=== PATIENT | male | born 1995 | race African-American/Black ===

== ENCOUNTER 2017-02-02 10:13 | Emergency (ER) | payer MEDICAID ==
[2017-02-02] MEDS ORDERED: SODIUM CHLORIDE 0.9% 1,000 ML IV ONE (14:15)
[2017-02-02 14:21] LABS: CLARITY URINE CLEAR (CLEAR); COLOR URINE YELLOW (YELLOW); GLUCOSE URINE NEGATIVE (NEGATIVE); KETONES URINE NEGATIVE (NEGATIVE); LEUKOCYTE ESTERASE URINE NEGATIVE (NEGATIVE); NITRITE URINE NEGATIVE (NEGATIVE); OCCULT BLOOD URINE NEGATIVE (NEGATIVE); PH URINE 7.5 (4.5-8.0); PROTEIN URINE NEGATIVE (NEGATIVE); SPECIFIC GRAVITY URINE 1.003 (1.005-1.030); UROBILINOGEN URINE 0.2 E.U./dL (0.2-1.0)
[2017-02-02 14:35] LABS: EOSINOPHILS % 0.5 % (0.0-5.0); HEMATOCRIT. 45.8 % (42.0-52.0); HEMOGLOBIN. 15.3 g/dL (14.0-18.0); LYMPHOCYTES % 31.4 % (20.0-50.0); MEAN CORPUSCULAR HEMOGLOBIN 29.1 pg (28.0-32.0); MEAN CORPUSCULAR VOLUME 86.8 fL (80.0-94.0); MEAN PLATELET VOLUME 9.7 fl (7.4-10.4); MONOCYTES % 11.6 % (2.0-8.0); NEUTROPHILS % 55.5 % (40.0-76.0); PLATELET 191 x1000/uL (130-400); RED BLOOD CELL COUNT 5.28 mill/uL (4.7-6.1); RED CELL DISTRIBUTION WIDTH 14.4 % (11.6-14.6)
[2017-02-02 14:41] LABS: *AMPHETAMINES SCREEN URINE NEGATIVE (NEGATIVE); *BARBITURATES SCREEN URINE NEGATIVE (NEGATIVE); *BENZODIAZEPINES SCREEN URINE NEGATIVE (NEGATIVE); *COCAINE SCREEN URINE NEGATIVE (NEGATIVE); CANNABINOID URINE SCREEN NEGATIVE (NEGATIVE); METHADONE URINE SCREEN NEGATIVE (NEGATIVE); OPIATES URINE SCREEN NEGATIVE (NEGATIVE); PHENCYCLIDINE URINE SCREEN NEGATIVE (NEGATIVE)
[2017-02-02 14:44] LABS: INR 1.1; PARTIAL THROMBOPLASTIN TIME 30.5 sec (24.0-34.0); PROTHROMBIN TIME 11.6 sec
[2017-02-02 14:49] LABS: CARBON DIOXIDE 28 mEq/L (21-32); CHLORIDE 103 mEq/L (98-107)
[2017-02-02 15:56] LABS: CREATINE KINASE 178 IU/L (39-308); TROPONIN I < 0.02 ng/mL (0.00-0.04)
== END 2017-02-02 16:00 | disposition home or self-care (01) ==
LOC: ER 13:49
DX: R07.89 Other chest pain (principal); R42 Dizziness and giddiness; R53.1 Weakness; J02.9 Acute pharyngitis, unspecified; E86.0 Dehydration
CPT/HCPCS: 36415; 71010; 80053; 80305; 81003; 82550; 82962; 83690; 84484; 85025; 85610; 85730; 93005; 96360; 99285; J7030; Z7610

== ENCOUNTER 2017-02-09 03:22 | Emergency (ER) | payer MEDICAID ==
[~2017-02-09] VITALS: Ht 165.1 cm; Wt 75.0 kg
[2017-02-09 07:07] VITALS: BP 115/63
== END 2017-02-09 08:11 | disposition home or self-care (01) ==
LOC: ER 07:19
DX: R07.0 Pain in throat (principal); F12.10 Cannabis abuse, uncomplicated
CPT/HCPCS: 87070; 87430; 99284; Z7610

== ENCOUNTER 2020-11-01 01:02 | Emergency (ER) | payer OTHER ==
[~2020-11-01] VITALS: Ht 167.6 cm; Wt 87.0 kg
[2020-11-01 01:20] VITALS: BP 136/79
== END 2020-11-01 01:45 | disposition left against medical advice (07) ==
LOC: ER 01:02
DX: Z53.21 Procedure and treatment not carried out due to patient leaving prior to being seen by health care provider (principal)